=== PATIENT | female | born 1955 | race Caucasian/White ===

== ENCOUNTER 2018-01-17 16:42 | Outpatient (CLI) | payer BC ==
--- NOTE | 2018-01-17 17:43 | RAD ---
RADIOGRAPH LEFT SHOULDER 3 VIEWS: 01/17/18 HISTORY: 62-year-old female with left shoulder pain. FINDINGS: There are two small calcific densities in the soft tissues abutting the superolateral aspect of the h umeral head. Each one is on the order of approximately 5 mm. There are moderate sized osteophytes at the inferior aspect of the humeral head. The osteophytes at the AC joint are mild. No fracture. IMPRESSION: 1. 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 The acute manifestation of this would be calcific tendonitis. 2. Moderate osteoarthrosis of the glenohumeral joint. POS: [facility]
--- NOTE | 2018-01-17 17:47 | RAD ---
RADIOGRAPH RIGHT KNEE 3 VIEWS: 01/17/18 HISTORY: 62-year-old female with chronic right knee pain. COMPARISON: None. FINDINGS: Moderate osteophytosis at the femoral side of the patellofemoral compartment. Moderate osteophytosis at the peripheral, lateral aspect of the lateral compartment. Significant joint space narrowing is pr esent at the lateral compartment only on the oblique view, but there is no joint space narrowing on t he AP view. The medial compartment joint space is maintained, with small osteophytes. Diffuse osteope ted. Small joint effusion. Edema in Hoffa's fat pad. IMPRESSION: 1. Tricompartmental osteoarthrosis, greatest at the lateral compartment (moderate). 2. Diffuse osteopenia. 3. Small joint effusion and edema in Hoffa's fat pad. POS: [facility]
== END 2018-01-17 16:43 | disposition home or self-care (01) ==
LOC: SCSRAD 16:42
PROVIDERS: ATTEND Family Medicine
DX: M25.512 Pain in left shoulder (principal); M25.561 Pain in right knee; M17.11 Unilateral primary osteoarthritis, right knee; M85.88 Other specified disorders of bone density and structure, other site; M25.461 Effusion, right knee; E88.89 Other specified metabolic disorders; M19.012 Primary osteoarthritis, left shoulder; M11.012 Hydroxyapatite deposition disease, left shoulder

== ENCOUNTER 2018-06-13 05:34 | Observation (INO) | payer BC, MEDICARE ==
[2018-06-13 05:58] LABS: #Basophils 0.1 thou/uL (0.0-0.2); #Lymphocytes 2.6 thou/uL (1.20-3.40); #Monocytes 0.8 thou/uL (0.11-0.59); #Neutrophils 5.2 thou/uL (1.40-6.50); %Basophils 0.6 % (0.0-1.0); %Eosinophils 0.1 % (0.0-10.0); %Lymphocytes 29.8 % (21.0-51.0); %Neutrophils 60.4 % (42.0-75.0); Hemoglobin 14.3 g/dL (12.0-16.0); Mean Corpuscular HGB CONC 35.3 g/dL (32.0-36.0); Mean Corpuscular Hemoglobin 32.7 pg (27.0-31.0); Mean Corpuscular Volume 92.6 fL (78.0-98.0); Mean Platelet Volume 6.4 fL (7.4-10.4); Platelet Count 333 thou/uL (130-400); RBC Distribution Width 12.6 % (11.5-14.5); Red Blood Cell (RBC) Count 4.37 mill/uL (4.20-5.40); White Blood Cell (WBC) Count 8.7 thou/uL (4.8-10.8)
[2018-06-13 06:12] LABS: ALT (SGPT) 28 U/L (8-55); AST (SGOT) 30 U/L (5-34); Albumin 4.5 g/dL (3.4-4.8); Alkaline Phosphatase 49 U/L (40-150); Anion Gap 15 mmol/L (10-20); BUN (Urea Nitrogen) 19 mg/dL (9.8-20.1); Bilirubin, Total 0.6 mg/dL (0.2-1.2); Calc. Creatinine Clearance 0 mL/min (70-130); Calcium 10.3 mg/dL (7.8-10.44); Carbon Dioxide 23 mmol/L (23-31); Chloride 105 mmol/L (98-107); Estimated GFR-MDRD 73; Globulin 3.7 g/dL (2.4-3.5); Glucose 98 mg/dL (80-115); Potassium 4.4 mmol/L (3.5-5.1); Protein, Total 8.2 g/dL (6.0-8.3); Sodium 139 mmol/L (136-145)
[2018-06-13 06:25] LABS: CKMB 1.5 ng/mL (0-6.6); Troponin I Less than 0.010 ng/mL (< 0.028)
[2018-06-13] MEDS ORDERED: Nitroglycerin 0.4 MG TAB (25 Tab Bottle) ONE (06:30)
[2018-06-13 06:59] LABS: Bilirubin Negative (Negative); Blood, Urine Negative (Negative); Clarity CLEAR (Clear); Glucose, Urine (Dipstick) Negative (Negative); Leukocyte Negative (Negative); Nitrite Negative (Negative); Protein, Urine (Dipstick) Negative (Neg-Trace); Specific Gravity, Urine 1.024 (1.002-1.036); Urobilinogen 0.2 mg/dL (0.2-1.0)
--- NOTE | 2018-06-13 07:52 | RAD ---
CHEST 1 VIEW: HISTORY: Pain. COMPARISON: None. FINDINGS: Normal cardiac silhouette. The pulmonary vessels and hilum are normal. Costophrenic angles are troy r. No consolidation or mass. No pneumothorax or osseous abnormalities. IMPRESSION: No acute cardiopulmonary process. POS: [facility]
[2018-06-13] MEDS ORDERED: Acetaminophen 325 MG TAB PO PRN (09:49)
[2018-06-13 09:51] LABS: Troponin I Less than 0.010 ng/mL (< 0.028)
[2018-06-13 09:57] VITALS: BMI 35.9
[2018-06-13 12:35] LABS: Troponin I Less than 0.010 ng/mL (< 0.028)
--- NOTE | 2018-06-13 13:05 | HP ---
DATE OF ADMISSION: 06/13/2018 CHIEF COMPLAINT: Chest pain. HISTORY OF PRESENT ILLNESS: The patient is a very pleasant 63-year-old female who presents to the [facility] with complaints of chest pain x1 day. The patient stated that she had her right upper tooth r emoved last week and was given antibiotic, which was clindamycin. The patient states that she has be en taking her clindamycin; however, this morning at 3:00, she woke up and was not feeling well. At 0 3:45, she started having some chest pain which she described it as like a "funny feeling." Patient s tated that she did feel a little nauseated and also was diaphoretic. She denies any fevers or chills , any shortness of breath, any diarrhea. The patient stated that this has never happened to her befo re. Patient stated that her pain lasted for about 10-15 minutes and subsided. She also had recurren t pain in the ER. Patient denies any history of heart disease. Has never had a stress test. The pa norberto denies any radiation to her bilateral upper extremities or jaw line area. PAST MEDICAL HISTORY: She has a history of hypertension. She has a history of cancer removal of the tongue. She also has a history of lichen planus. PSYCHIATRIC HISTORY: Denies any psychiatric history. SOCIAL HISTORY: She denies any alcohol use, drug use. No smoking history. SURGICAL HISTORY: She has had a lesion removed from her tongue and she has also had a stomach stapli ng surgery. ALLERGIES: PENICILLIN, SULFA. MEDICATIONS: She does not know the doses, but she is on enalapril, levothyroxine, hydrochlorothiazid e, propranolol, vitamin D, and clindamycin. FAMILY HISTORY: Mother at the age of 94 with a history of atrial fibrillation. Father had some valve replacement. REVIEW OF SYSTEMS: All negative except for the ones mentioned above in the HPI. LABORATORY DATA AND IMAGING DATA: Laboratory results are as of the following: WBC 8.7, hemoglobin o f 14.3, hematocrit 40.5, platelets of 333. Chemistry: Sodium 139, potassium 4.4, BUN of 19, creatin ine 0.79. LFTs were normal. Troponin x2 has been negative and patient's EKG indicates no ST changes , just indicated some sinus bradycardia. PHYSICAL EXAMINATION: VITAL SIGNS: Temperature of 97.6, 56, 16, 96% on room air, 144/69. GENERAL: She is awake, alert, oriented x3, does not appear in distress. HEENT: Normocephalic, atraumatic. NECK: No lymphadenopathy noted. ABDOMEN: Soft, nontender. Bowel sounds are present x2. EXTREMITIES: No edema. Pedal pulses are present x2. ASSESSMENT AND PLAN: The patient is a very pleasant 63-year-old female who presents to the hospital with complaints of chest pain. 1. Atypical chest pain. Given the patient's age, risk factors, we will undergo a stress test and if stress test is normal, will discharge the patient. Her troponins are negative. EKG, no acute key es. 2. Mild bradycardia, asymptomatic. She has been on propranolol 80 mg for headaches. I will decrea se the dose and I will notify her that I will decrease the dose if she does have some mild bradycardi a. However, the patient is asymptomatic. 3. Hypertension. We will continue her home medications. 4. Hypothyroidism. We will continue home medications. 5. SCDs. We will put the patient on subcu Lovenox or heparin.
[2018-06-13] MEDS: Nitroglycerin 2% Ointment 1 INCH/1 GM Packet TOP SCH ×2 (15:10→19:53)
[2018-06-14] MEDS: Nitroglycerin 2% Ointment 1 INCH/1 GM Packet TOP SCH ×2 (05:52→13:12)
[2018-06-14 05:55] LABS: Cardiac Risk 5.8 (Less than 4.5)
[2018-06-14] MEDS ORDERED: Levothyroxine Sodium 100 MCG TAB PO SCH (06:00)
[2018-06-14] MEDS ORDERED: Aspirin 325 mg Enteric Coated Tablet PO SCH (09:00)
[2018-06-14] MEDS ORDERED: Propranolol 60 MG TAB PO SCH (09:00)
[2018-06-14] MEDS ORDERED: Hydrochlorothiazide 25 MG TAB PO SCH (09:00)
[2018-06-14] MEDS ORDERED: Aspirin 325 MG TAB PO SCH (09:00)
[2018-06-14 11:22] VITALS: BP 143/66; TEMP 97.6
--- NOTE | 2018-06-14 13:28 | NM ---
NUCLEAR MEDICINE CARDIAC STRESS WITH EF AND WALL MOTION: HISTORY: Chest pain. COMPARISON: None. TECHNIQUE: 10.8 mCi of Technetium 99m sestamibi for rest imaging and 30.8 mCi of Technetium 99m sestamibi for st ress imaging. Cardiac gating is performed. FINDINGS: Based on the nonattenuation-corrected images, there is homogeneous distribution of the radiotracer. No reversibility or fixed defect. TID is 0.81. End-diastolic volume is 87 mL. End-systolic volume is 20 mL. CARDIAC GATING: Normal motion and thickening. EF is 77%. IMPRESSION: 1. No reversibility or fixed defect. 2. 77% ejection fraction. POS: [facility]
[2018-06-14] MEDS ORDERED: Atorvastatin Calcium 20 MG TAB PO SCH (21:00)
--- NOTE | 2018-06-14 21:55 | DIS ---
DATE OF ADMISSION: 06/13/2018 DATE OF DISCHARGE: 06/14/2018 DISCHARGE DIAGNOSES: 1. Chest pain. 2. Hypertension. 3. High cholesterol. HOSPITAL COURSE: The patient is a 63-year-old female who initially presented to the hospital with co mplaints of chest pain and chest tightness. She underwent a stress test, which was negative. The refugio thornton was found to have high cholesterol and high triglycerides and was put on atorvastatin. The ashu joyner also was found to be bradycardic; however, it was asymptomatic. At this time, she was on propra nolol that she takes for headaches with the dose decreased from 80 mg to 60 mg. MEDICATIONS: Home medications are as of the followin. Propranolol 60 mg daily. 2. Atorvastatin 20 mg at bedtime. 3. Vasotec 20 mg b.i.d. 4. Hydrochlorothiazide 25 mg daily. 5. Levothyroxine 100 mcg p.o. daily. PHYSICAL EXAMINATION: VITAL SIGNS: Temperature of 97.6, 69, 134/61, 16, 97% on room air. GENERAL: She is awake, alert, oriented x3, does not appear in distress. CARDIOVASCULAR: S1, S2 present. No murmurs, rubs, or gallops. ABDOMEN: Soft, nontender. Bowel sounds are present x2. EXTREMITIES: No edema. The patient will be discharged home. Follow up with PCP.
--- NOTE | 2018-06-17 10:46 | EKG ---
Test Reason : Blood Pressure : / mmHG Vent. Rate : 057 BPM Atrial Rate : 057 BPM P-R Int : 148 ms QRS Dur : 086 ms QT Int : 402 ms P-R-T Axes : 020 001 021 degrees QTc Int : 391 ms Sinus bradycardia with occasional Premature ventricular complexes Otherwise normal ECG Confirmed by RHINA LOPEZ, ESTEBAN Andersen ([id number]), editor at large LUISA GOMEZ ([id number]) on 06/17/2018 10:45:49 AM Referred By: Confirmed By:ESTEBAN LANTIGUA MD
--- NOTE | 2018-06-20 10:49 | STRESS ---
Acquisition Time: 2018-06-14 10:00:55 Total Exercise Time: 00:04:00 Test Indications: CHEST PAIN Medications: Protocol: ADENOSINE Max HR: 089 BPM 57% of Pred: 155 BPM Max BP: 124/084 mmHG Max Work Load: 1.0 METS RESTING ECG: SINUS BRADYCARDIA AT 53 BPM SYMPTOMS: WEIRD FEELING NORMAL BP RESPONSE ECTOPY: RARE PVC'S ECG STRESS: NO SIGNIFICANT CHANGES INTERPRETATION:AWAIT NUCLEAR IMAGES FOR DEFINITIVE DIAGNOSIS Confirmed by ABBY SIMPSON ([id number]), scientific publications editor FATMATA MENCHACA ([id number]) on 06/20/2018 10:48:41 AM Referred By: MD Hyun LIN Confirmed By:ABBY SIMPSON
== END 2018-06-14 15:37 | disposition home or self-care (01) ==
LOC: ERS 05:34 → 2SW 09:54
PROVIDERS: ADMIT Internal Medicine; ATTEND Internal Medicine
DX: R07.89 Other chest pain (principal); R00.1 Bradycardia, unspecified; I10 Essential (primary) hypertension; E03.9 Hypothyroidism, unspecified; F80.82 Social pragmatic communication disorder; E78.00 Pure hypercholesterolemia, unspecified; Z79.899 Other long term (current) drug therapy
CPT/HCPCS: 71045; 78452; 80053; 80061; 81003; 82553; 83690; 84484 ×2; 85025; 93005; 93017; 94760 ×2; 99285; A9500; G0378 ×2; 36415; A4216; J0153

== ENCOUNTER 2018-09-18 18:00 | Outpatient (CLI) | payer MEDICARE | END 2018-09-18 18:01 | disposition home or self-care (01) | LOC: SLEEPLAB 18:00 | PROVIDERS: ATTEND Family Medicine | DX: E66.9 Obesity, unspecified (principal); G47.33 Obstructive sleep apnea (adult) (pediatric); I10 Essential (primary) hypertension; Z68.36 Body mass index [BMI] 36.0-36.9, adult | CPT/HCPCS: 95806 ==

== ENCOUNTER 2018-10-27 10:54 | Outpatient (CLI) | payer MEDICARE ==
--- NOTE | 2018-11-10 15:19 | MMO ---
BILATERAL SCREENING MAMMOGRAM: Date: 10/27/18 COMPARISON: 02/28/17, 01/26/16, and 12/31/13. HISTORY: Screening. FINDINGS: This patient's mammogram was interpreted with the assistance of computer-aided detection. Scattered fibroglandular densities are present. There are benign-appearing calcifications seen bilaterally. There is no dominant mass or architectural distortion. No concerning microcalcifications are noted. IMPRESSION: BIRADS 2: Benign Finding(s) Annual screening mammography recommended. POS: [facility]
== END 2018-10-27 10:55 | disposition home or self-care (01) ==
LOC: SCSMAMMO 10:54
PROVIDERS: ATTEND Family Medicine
DX: Z12.31 Encounter for screening mammogram for malignant neoplasm of breast (principal)
CPT/HCPCS: 77067

== ENCOUNTER 2018-11-14 20:30 | Outpatient (CLI) | payer MEDICARE | END 2018-11-14 20:31 | disposition home or self-care (01) | LOC: SLEEPLAB 20:30 | PROVIDERS: ATTEND Family Medicine | DX: E66.9 Obesity, unspecified (principal); Z68.36 Body mass index [BMI] 36.0-36.9, adult; G47.33 Obstructive sleep apnea (adult) (pediatric); R06.83 Snoring; G47.10 Hypersomnia, unspecified; I10 Essential (primary) hypertension | CPT/HCPCS: 95810 ==

== ENCOUNTER 2018-11-16 15:17 | Outpatient (CLI) | payer MEDICARE ==
--- NOTE | 2018-11-16 17:19 | MRI ---
MRI OF LEFT KNEE PERFORMED WITHOUT CONTRAST ENHANCEMENT: 11/16/18 HISTORY: Left knee pain for three months. The anterior as well as posterior cruciate ligaments are intact. The lateral meniscus shows some increased signal change within the posterior horn body and anterior h orn region with an area of irregularity increased signal change involving the superior articular surf mireya near the junction of the anterior horn and body which appears to be related to more of a degenera tive type tear and fraying. There are adjacent arthritic changes of the lateral compartment of the kn ee with spur formation in this region and some marrow edema change along the lateral edge of the femu r in this area. In addition, there is some slight blunting to the free edge of the posterior horn of the lateral meniscus. The medial meniscus has increased intrameniscal signal change but no tear is identified. Medial and lateral collateral ligaments and iliotibial band regions are unremarkable. There is moderate arthritic changes of the patellofemoral joint space. Medial and lateral patellar re tinaculum are normal in appearance. Some mild patellar tendonosis noted. There are edema changes note d within Hoffa's fat pad probably related to the underlying patellofemoral degenerative change and s ome tracking abnormality. There is a small Carlin's cyst noted. IMPRESSION: 1. Tricompartment arthritic changes of the knee. These changes are more pronounced in the latera l and patellofemoral compartments. 2. Small free edge tear involving the posterior horn of the lateral meniscus and degenerative fr aying and more of a degenerative type tear involving the superior articular surface of the junction o f the anterior horn and body of the lateral meniscus. 3. Associated with the arthritic changes are ossified bodies, some of which appear to be trapped in a superior recess posterior to the lateral femoral condyle. There also appears to be a articular body interposed between the patella and trochlear groove. POS: [facility]
== END 2018-11-16 15:18 | disposition home or self-care (01) ==
LOC: TBSIIMAG 15:17
PROVIDERS: ATTEND Orthopaedic Surgery
DX: M23.92 Unspecified internal derangement of left knee (principal); M17.12 Unilateral primary osteoarthritis, left knee; M23.252 Derangement of posterior horn of lateral meniscus due to old tear or injury, left knee

== ENCOUNTER 2018-12-13 20:30 | Outpatient (CLI) | payer MEDICARE | END 2018-12-13 20:31 | disposition home or self-care (01) | LOC: SLEEPLAB 20:30 | PROVIDERS: ATTEND Family Medicine | DX: G47.33 Obstructive sleep apnea (adult) (pediatric) (principal); E66.9 Obesity, unspecified | CPT/HCPCS: 95811 ==

== ENCOUNTER 2021-12-04 20:40 | Inpatient (IN) | payer OTHER, MEDICARE ==
[~2021-12-04 20:40] MED LIST: Iopamidol 370 76% 100 ML VIAL ONE
[2021-12-04 21:02] LABS: #Basophils 0.1 thou/uL (0.0-0.2); #Eosinphils 0.2 thou/uL (0.0-0.7); #Lymphocytes 2.1 thou/uL (1.20-3.40); #Monocytes 0.8 thou/uL (0.11-0.59); #Neutrophils 9.1 thou/uL (1.40-6.50); %Basophils 0.6 % (0.0-1.0); %Eosinophils 1.5 % (0.0-10.0); %Lymphocytes 17.3 % (21.0-51.0); %Monocytes 6.3 % (0.0-10.0); %Neutrophils 74.3 % (42.0-75.0); Hemoglobin 14.2 g/dL (12.0-16.0); Mean Corpuscular HGB CONC 34.7 g/dL (32.0-36.0); Mean Corpuscular Hemoglobin 33.2 pg (27.0-31.0); Mean Corpuscular Volume 95.9 fL (78.0-98.0); Mean Platelet Volume 6.3 fL (7.4-10.4); Platelet Count 249 thou/uL (130-400); RBC Distribution Width 12.7 % (11.5-14.5); Red Blood Cell (RBC) Count 4.28 mill/uL (4.20-5.40); White Blood Cell (WBC) Count 12.3 thou/uL (4.8-10.8)
[2021-12-04 21:19] LABS: ALT (SGPT) 38 U/L (8-55); AST (SGOT) 45 U/L (5-34); Albumin 4.1 g/dL (3.4-4.8); Alkaline Phosphatase 56 U/L (40-110); Anion Gap 15 mmol/L (10-20); BUN (Urea Nitrogen) 22 mg/dL (9.8-20.1); Bilirubin, Total 0.7 mg/dL (0.2-1.2); Calc. Creatinine Clearance 0 mL/min (70-130); Calcium 9.4 mg/dL (7.8-10.44); Carbon Dioxide 21 mmol/L (23-31); Chloride 105 mmol/L (98-107); Globulin 3.2 g/dL (2.4-3.5); Glucose 133 mg/dL (80-115); Potassium 3.3 mmol/L (3.5-5.1); Protein, Total 7.3 g/dL (5.8-8.1); Sodium 138 mmol/L (136-145)
[2021-12-04] MEDS ORDERED: Morphine 4 MG/ML VIAL ONE ×2 (21:51→23:14)
[2021-12-04] MEDS ORDERED: Magnesium 2 GM/50 ML BAG (IN WATER) ONE (21:51)
[2021-12-04] MEDS ORDERED: Ondansetron PF 4 MG/2 ML Vial ONE (21:51)
[2021-12-04] MEDS ORDERED: Ondansetron PF 4 MG/2 ML Vial IVP PRN (22:30)
[2021-12-04] MEDS ORDERED: hydrALAZINE 20 MG/ML VIAL SLOW IVP PRN (22:30)
[2021-12-04] MEDS ORDERED: Acetaminophen 325 MG TAB PO PRN (22:30)
[2021-12-04] MEDS ORDERED: Promethazine HCl 25 MG/ML VIAL IM PRN (22:30)
[2021-12-04 22:55] LABS: Bilirubin Negative (Negative); Blood, Urine Negative (Negative); Clarity Clear (Clear); Glucose, Urine (Dipstick) Normal (Negative); Ketone, Urine Negative (Negative); Leukocyte Negative Leu/uL (Negative); Nitrite Negative (Negative); Protein, Urine (Dipstick) 10 mg/dL (Neg-Trace); Specific Gravity, Urine 1.052 (1.002-1.036); Urobilinogen Normal mg/dL (Less than 2); pH, Urine 5.5 (5.0-9.0)
[2021-12-04] MEDS ORDERED: Ibuprofen 200 MG TAB PO PRN (23:13)
[2021-12-04] MEDS ORDERED: Potassium Chloride 20 MEQ TAB ONE (23:14)
[2021-12-04] MEDS ORDERED: Acetaminophen 500 MG TAB ONE (23:14)
[2021-12-04] MEDS ORDERED: Morphine 4 MG/ML VIAL SLOW IVP PRN (23:26)
[2021-12-04] MEDS ORDERED: Magnesium 2 GM/50 ML 2 GM in Premix Bag 1 BAG IVPB SCH (23:30)
[2021-12-04] MEDS ORDERED: Lactated Ringer's 1,000 ML IV SCH (23:30)
[2021-12-04] MEDS ORDERED: Potassium Phosphate 30 MMOL in Sodium Chloride 0.9% 250 ML 250 ML IVPB SCH (23:59)
[2021-12-05 01:09] VITALS: BMI 23.6
[2021-12-05] MEDS: Acetaminophen/Codeine 30-300mg Tablet PO SCH ×5 (01:50→20:40)
[2021-12-05] MEDS: Acetaminophen 325 MG TAB PO SCH ×4 (02:36→20:41)
[2021-12-05 04:24] LABS: SARS-CoV-2 NAA Rapid Test Not Detected (NotDetected)
[2021-12-05 05:27] LABS: #Lymphocytes 0.8 thou/uL (1.20-3.40); #Monocytes 0.7 thou/uL (0.11-0.59); #Neutrophils 6.4 thou/uL (1.40-6.50); %Basophils 0.2 % (0.0-1.0); %Eosinophils 0.2 % (0.0-10.0); %Monocytes 8.2 % (0.0-10.0); %Neutrophils 81.4 % (42.0-75.0); Hemoglobin 12.2 g/dL (12.0-16.0); Mean Corpuscular HGB CONC 33.3 g/dL (32.0-36.0); Mean Corpuscular Hemoglobin 31.9 pg (27.0-31.0); Mean Corpuscular Volume 95.7 fL (78.0-98.0); Mean Platelet Volume 6.3 fL (7.4-10.4); Platelet Count 177 thou/uL (130-400); RBC Distribution Width 12.7 % (11.5-14.5); Red Blood Cell (RBC) Count 3.82 mill/uL (4.20-5.40); White Blood Cell (WBC) Count 7.9 thou/uL (4.8-10.8)
[2021-12-05] MEDS: Levothyroxine Sodium 100 MCG TAB PO SCH (05:28)
[2021-12-05 05:49] LABS: Anion Gap 10 mmol/L (10-20); BUN (Urea Nitrogen) 18 mg/dL (9.8-20.1); Calc. Creatinine Clearance 78 mL/min (70-130); Calcium 8.5 mg/dL (7.8-10.44); Carbon Dioxide 24 mmol/L (23-31); Chloride 107 mmol/L (98-107); Glucose 93 mg/dL (80-115); Magnesium 2.5 mg/dL (1.6-2.6); Phosphorus 4.1 mg/dL (2.3-4.7); Potassium 4.3 mmol/L (3.5-5.1); Sodium 137 mmol/L (136-145)
[2021-12-05] MEDS ORDERED: Propranolol 60 MG TAB PO SCH (09:00)
[2021-12-05] MEDS: Polyethylene Glycol 3350 17 GM Packet PO SCH (09:25)
[2021-12-05] MEDS: Senokot S 8.6-50 MG TAB PO SCH ×2 (09:27→20:41)
[2021-12-05] MEDS: Cyclobenzaprine 10 MG TAB PO PRN (09:31)
[2021-12-05] MEDS ORDERED: Acetaminophen/Codeine 30-300mg Tablet PO SCH ×2 (12:00→13:15)
[2021-12-05] MEDS: Ibuprofen 200 MG TAB PO SCH ×2 (13:23→20:41)
[2021-12-05] MEDS ORDERED: Atorvastatin Calcium 20 MG TAB PO SCH (21:00)
[2021-12-06] MEDS: Acetaminophen/Codeine 30-300mg Tablet PO SCH ×3 (01:34→08:43)
[2021-12-06] MEDS: Acetaminophen 325 MG TAB PO SCH ×3 (02:51→08:42)
[2021-12-06] MEDS: Cyclobenzaprine 10 MG TAB PO PRN (03:18)
[2021-12-06] MEDS: Ibuprofen 200 MG TAB PO SCH (05:26)
[2021-12-06] MEDS: Levothyroxine Sodium 100 MCG TAB PO SCH (05:26)
[2021-12-06] MEDS: Senokot S 8.6-50 MG TAB PO SCH (08:43)
[2021-12-06] MEDS: Polyethylene Glycol 3350 17 GM Packet PO SCH (08:44)
[2021-12-06 09:55] VITALS: BP 116/71; TEMP 97.7
== END 2021-12-06 11:12 | disposition home or self-care (01) | DRG 552 ==
LOC: ERS 20:40 → SURG B 22:30
PROVIDERS: ADMIT Surgery; ATTEND Surgery
DX: S22.081A Stable burst fracture of T11-T12 vertebra, initial encounter for closed fracture (principal); Z20.822 Contact with and (suspected) exposure to COVID-19; I10 Essential (primary) hypertension; E78.5 Hyperlipidemia, unspecified; E03.9 Hypothyroidism, unspecified; E87.6 Hypokalemia; V44.5XXA Car driver injured in collision with heavy transport vehicle or bus in traffic accident, initial encounter; Z88.2 Allergy status to sulfonamides; Z88.0 Allergy status to penicillin; Z79.890 Hormone replacement therapy; Z79.899 Other long term (current) drug therapy
CPT/HCPCS: 36415; 70450; 71045; 72125; 74177; 80048; 80053; 81003; 83735; 84100; 85025; 93005; 96365; 96375; 96376; G0390; J2270; J2405; J3475; J7050; J7120; Q9967; U0002

== ENCOUNTER 2021-12-18 11:14 | Outpatient (CLI) | payer MEDICARE | END 2021-12-18 11:15 | disposition home or self-care (01) | LOC: TBSIIMAG 11:14 | PROVIDERS: ATTEND Surgery | DX: S22.081A Stable burst fracture of T11-T12 vertebra, initial encounter for closed fracture (principal); S32.011A Stable burst fracture of first lumbar vertebra, initial encounter for closed fracture; M40.205 Unspecified kyphosis, thoracolumbar region | CPT/HCPCS: 72072; 72100 ==

== ENCOUNTER 2022-01-15 12:06 | Outpatient (CLI) | payer MEDICARE | END 2022-01-15 12:07 | disposition home or self-care (01) | LOC: TBSIIMAG 12:06 | PROVIDERS: ATTEND Nurse Practitioner Family | DX: S22.081A Stable burst fracture of T11-T12 vertebra, initial encounter for closed fracture (principal); S32.010A Wedge compression fracture of first lumbar vertebra, initial encounter for closed fracture; M47.816 Spondylosis without myelopathy or radiculopathy, lumbar region | CPT/HCPCS: 72072; 72100; 72146; 72148 ==

== ENCOUNTER 2022-02-26 13:30 | Outpatient (CLI) | payer MEDICARE | END 2022-02-26 13:31 | disposition home or self-care (01) | LOC: TBSIIMAG 13:30 | PROVIDERS: ATTEND Surgery | DX: S22.080A Wedge compression fracture of T11-T12 vertebra, initial encounter for closed fracture (principal) | CPT/HCPCS: 72100 ==

== ENCOUNTER 2022-09-13 09:41 | Outpatient (CLI) | payer MEDICARE | END 2022-09-13 09:42 | disposition home or self-care (01) | LOC: TBSIIMAG 09:41 | PROVIDERS: ATTEND Nurse Practitioner Family | DX: S22.080G Wedge compression fracture of T11-T12 vertebra, subsequent encounter for fracture with delayed healing (principal); S32.010G Wedge compression fracture of first lumbar vertebra, subsequent encounter for fracture with delayed healing; G95.9 Disease of spinal cord, unspecified; M43.9 Deforming dorsopathy, unspecified; M51.35 Other intervertebral disc degeneration, thoracolumbar region; M51.36 Other intervertebral disc degeneration, lumbar region; M51.37 Other intervertebral disc degeneration, lumbosacral region; S22.081A Stable burst fracture of T11-T12 vertebra, initial encounter for closed fracture; M47.24 Other spondylosis with radiculopathy, thoracic region; M51.14 Intervertebral disc disorders with radiculopathy, thoracic region; M48.04 Spinal stenosis, thoracic region; S32.011A Stable burst fracture of first lumbar vertebra, initial encounter for closed fracture | CPT/HCPCS: 72146; 72148 ==